=== PATIENT | male | born 1990 | race Caucasian/White ===

== ENCOUNTER 2017-07-13 14:40 | Emergency (ER) | payer OTHER, MEDICAID, SELFPAY ==
--- NOTE | 2017-07-13 15:03 | PC.NURSE ---
Not in WR when called for Triage
== END 2017-07-13 15:08 | disposition left against medical advice (07) ==
DX: F41.0 Panic disorder [episodic paroxysmal anxiety] (principal)
CPT/HCPCS: 99281

== ENCOUNTER 2017-12-03 01:29 | Emergency (ER) | payer OTHER, MEDICAID, SELFPAY ==
[2017-12-03 01:46] VITALS: BP 179/134; PULSE 117; RESP 15; TEMP 36.4; O2SAT 100
[2017-12-03] MEDS: clonazePAM 0.5 MG TABLET PO (02:25)
--- NOTE | 2017-12-03 02:34 | ED_ITS ---
HPI - Anxiety General Chief Complaint: Recheck/Abnormal Lab/Rx Stated Complaint: difficulty with anxiety and depression Time Seen by Provider: 12/03/17 02:12 Source: patient Mode of arrival: ambulatory Limitations: no limitations History of Present Illness HPI narrative: this is a 27-year-old male who comes to the emergency department with complaint of anxiety and depression. Patient states that it has been worse lately as his roommate has moved out and his living situation is tenuous. Patient has been seeing Altagracia Robison for his care and states that he ran out of his clonazepam and losartan. He has a prescription at the pharmacy for his losartan but does not believe he has 1 for his clonazepam. He also has a history of alcohol abuse. He states he will drink sometimes 5-9 beers depending on his symptomatology. He states that a week or 2 ago he did feel suicidal, he denies any homicidal ideation. He states that he does not feel suicidal today but does feel quite overwhelmed. He states that he told his mom he would come to the emergency department if he did think he could make it to work tomorrow. Patient does smoke cigarettes he denies you know was sick earlier. He does have a counselor Dr. Alberto that he follows with it [facility]. Patient does not feel that he needs to be hospitalized and he does not feel that he is unsafe but does feel very anxious. he also has a history of hypertension which is why he is on the losartan. Related Data Home Medications Medication Instructions Recorded Confirmed Nexium 20 mg PO .QDAY 09/29/17 11/11/17 Milk Thistle 250 mg PO TID 10/14/17 11/11/17 Previous Rx's Medication Instructions Recorded losartan 50 mg tablet 50 mg PO QDAY #30 tab 08/18/17 disulfiram 250 mg tablet See Label Instructions PO DAILY 10/14/17 #44 tab clonazepam 0.5 mg tablet 0.5 mg PO TID PRN #45 tab 12/02/17 clonazepam 0.5 mg PO TID PRN #10 tab 12/03/17 Allergies Allergy/AdvReac Type Severity Reaction Status Date / Time No Known Drug Allergies Allergy Verified 12/03/17 01:46 Review of Systems Review of Systems All systems reviewed & are unremarkable except as noted in HPI and below Psychiatric Reports as per HPI, Reports anxiety, Reports depression, Reports panic attacks, Denies hallucinations, Denies homicidal ideation and Denies suicidal ideation [facility] Medical History Essential hypertension (Chronic) Polysubstance abuse (Chronic) Anxiety disorder (Chronic) Elevated liver enzymes (Chronic) Abnormal fasting glucose (Chronic) Episode of recurrent major depressive disorder (Chronic) Steatosis of liver (Chronic 06/16/17) Chronic alcoholic gastritis without hemorrhage (Chronic 02/02/17) Gastric ulcer (Resolved) ADHD (attention deficit hyperactivity disorder) (Chronic 2003) Alcohol abuse (Chronic Unknown) Anxiety (Chronic 2008) Depression (Chronic 2008) Surgical History Status post endoscopy (03/08/17) Family History Father Alcoholic Mental health problem Grandfather Heart disease Hypertension High cholesterol Mother Age: 62 Anxiety Essential hypertension Grandfather Alcoholic Other Family history of alcoholism in father Social History Smoking Status: Current every day smoker Tobacco: How many years used: 6 quit status: considering quitting (Gave patient smoking cessation handout. He said I'm not really addicted to it.) second hand exposure: No alcohol intake: current (light beer every night - anywhere between 3 and 9 cans.) substance use type: other (I use Kratom, but I am reducing my dose as much as I can ) Exam Narrative Exam Narrative: GENERAL: Alert and oriented x three, HEENT: Head normocephalic, atraumatic, EOMI, pupils reactive, face symmetric, moist mucous membranes NECK: Supple, full range of motion CARDIOVASCULAR: Regular rate and rhythm without murmurs, rubs or gallops. RESPIRATORY: Breath sounds equal bilaterally, no wheezes rales or rhonchi. ABDOMEN: Soft, nontender. Normoactive bowel sounds all 4 quadrants. No guarding or rebound, rigidity, no mass : No CVA tenderness EXTREMITIES: Normal range of motion, no clubbing or edema. Neurovascularly intact NEUROLOGICAL: Cranial nerves II through XII grossly intact. Moving all extremities SKIN: Warm, dry, no petechiae, no rashes or lesions. Initial Vital Signs Initial Vital Signs: Vital Signs Temperature 97.6 F 12/03/17 01:46 Pulse Rate 117 H 12/03/17 01:46 Respiratory Rate 15 12/03/17 01:46 Blood Pressure 179/134 H 12/03/17 01:46 Pulse Oximetry 100 12/03/17 01:46 Psych Appearance: grossly normal Mental Status: mental status grossly normal Speech and Movement: speech and movement normal Mood: anxious mood Affect: normal affect Attitude: cooperative Thought Process: normal Thought Content: normal, no homicidality and suicidality Judgment: judgment good Other: Patient has had thoughts of suicide in past but denies today. He states he has been agoraphobic and difficulty making it too the ER. Course Orders Ordered: Discontinued Medications Clonazepam (Klonopin) 0.5 mg PO NOW ONE Stop: 12/03/17 02:24 Last Admin: 12/03/17 02:25 Dose: 0.5 mg Vital Signs - 8 hr 12/03/17 01:46 12/03/17 02:45 Temperature 97.6 F 97.6 F Pulse Rate 117 H 117 H Respiratory Rate 15 15 Blood Pressure 179/134 H 179/134 H Pulse Oximetry 100 100 Discharge Plan Departure Patient Disposition: Home Clinical Impression: Anxiety, Depression Discharge Date/Time: 12/03/17 02:40 Interventions: ED Discharge Assessment Last Done: 12/03/17 02:35 Instructions: Depression Activity Restrictions/Additional Instructions: Follow up in the next several days with Altagracia Robison, call the office to set up follow up. Let them know you received a prescription for Clonazepam. Take medication as prescribed. This medication can make you sleepy do not drive, perform hazards activities or make any major decisions while taking it. 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 Return to the emergency department for any new or concerning symptoms. If you feel your a danger to herself or others. You may also contact the suicide hotline at any time if you feel that it is needed. If you're feeling suicidal or having suicidal thoughts, contact the suicide hotline: . Prescriptions: New clonazepam 0.5 mg tablet 0.5 mg PO TID PRN (Reason: anxiety) Qty: 10 RF: 0 No Action Nexium 20 mg PO .QDAY RF: 0 Milk Thistle 250 mg PO TID RF: 0 disulfiram 250 mg tablet See Label Instructions PO DAILY Qty: 44 RF: 0 losartan [Cozaar] 50 mg tablet 50 mg PO QDAY Qty: 30 RF: 3 clonazepam 0.5 mg tablet 0.5 mg PO TID PRN (Reason: anxiety) Qty: 45 RF: 0 Referrals: Gerda Robison PA-C [Primary Care Provider] - (Received rx for clonazepam #10 tabs.)
[2017-12-03 02:45] VITALS: BP 179/134; PULSE 117; RESP 15; TEMP 36.4; O2SAT 100
== END 2017-12-03 02:40 | disposition home or self-care (01) ==
PROVIDERS: Emergency Provider Emergency Medicine; PCP Physician Assistant
DX: F32.9 Major depressive disorder, single episode, unspecified (principal)
CPT/HCPCS: 99282; 99283